=== PATIENT | female | born 1990 | race Caucasian/White ===

== ENCOUNTER 2024-04-14 13:27 | Outpatient (RCR) | payer OTHER, SELFPAY | END 2024-04-14 23:59 | disposition home or self-care (01) | LOC: RPT 13:27 | PROVIDERS: ATTENDING PHYSICIAN Physician Assistant | DX: S73.191D Other sprain of right hip, subsequent encounter (principal); Q65.89 Other specified congenital deformities of hip; Z73.6 Limitation of activities due to disability | CPT/HCPCS: 97163 ==

== ENCOUNTER 2024-05-12 19:02 | Outpatient (RCR) | payer OTHER, SELFPAY | END 2024-05-12 23:59 | disposition home or self-care (01) | LOC: RPT 19:02 | PROVIDERS: ATTENDING PHYSICIAN Physician Assistant | DX: S73.191D Other sprain of right hip, subsequent encounter (principal); S73.192D Other sprain of left hip, subsequent encounter; Q65.9 Congenital deformity of hip, unspecified; Z73.6 Limitation of activities due to disability | CPT/HCPCS: 97110 ==

== ENCOUNTER 2024-05-31 18:06 | Outpatient (RCR) | payer OTHER, SELFPAY | END 2024-06-02 06:08 | disposition home or self-care (01) | LOC: RPT 18:06 | PROVIDERS: ATTENDING PHYSICIAN Physician Assistant | DX: Q65.89 Other specified congenital deformities of hip (principal); S73.191D Other sprain of right hip, subsequent encounter; S73.192D Other sprain of left hip, subsequent encounter; Z73.6 Limitation of activities due to disability; M62.81 Muscle weakness (generalized); R26.89 Other abnormalities of gait and mobility | CPT/HCPCS: 97110 ==